=== PATIENT | female | born 1965 | race Two or more races ===

== ENCOUNTER 2017-05-17 12:53 | Emergency (ER) | payer MEDICAID ==
[~2017-05-17] VITALS: Ht 154.9 cm; Wt 81.6 kg
[2017-05-17 13:28] VITALS: BP 123/72
[2017-05-17 15:34] LABS: Urine Bilirubin Negative (Negative); Urine Blood Negative /uL (Negative); Urine Color Yellow (Yellow); Urine Glucose Normal (Normal); Urine Ketone Negative (Negative); Urine Mucus FEW (None Seen); Urine Nitrite Negative (Negative); Urine RBC 2 /hpf (0 - 4); Urine Squamous Epithelial Cell FEW /hpf (<5); Urine Urobilinogen Normal (Negative); Urine pH 5.5 (5.0-8.0)
== END 2017-05-17 16:12 | disposition home or self-care (01) ==
LOC: ER 12:53
DX: M54.5 Low back pain (principal); N39.0 Urinary tract infection, site not specified; F17.210 Nicotine dependence, cigarettes, uncomplicated; Z88.0 Allergy status to penicillin
CPT/HCPCS: 81001; 81025

== ENCOUNTER 2021-10-05 11:58 | Emergency (ER) | payer MEDICAID ==
[~2021-10-05] VITALS: Ht 157.5 cm; Wt 104.3 kg
[2021-10-05 12:40] VITALS: BP 149/80
[2021-10-05] MEDS ORDERED: PRED20TA2 PO (12:54)
[2021-10-05] MEDS ORDERED: PROM1SOL4 PO (12:54)
[2021-10-05] MEDS ORDERED: AMOX-277 PO (12:54)
[2021-10-05] MEDS ORDERED: CEPH500T PO (13:09)
== END 2021-10-05 13:10 | disposition home or self-care (01) ==
LOC: ER 11:58
DX: J21.9 Acute bronchiolitis, unspecified (principal); H65.03 Acute serous otitis media, bilateral; F17.210 Nicotine dependence, cigarettes, uncomplicated; R94.31 Abnormal electrocardiogram [ECG] [EKG]; Z98.51 Tubal ligation status
CPT/HCPCS: 71046; 93005